=== PATIENT | female | born 1995 | race Caucasian/White ===

== ENCOUNTER 2017-01-05 15:33 | Inpatient (IN) | payer BC ==
[~2017-01-05] VITALS: Ht 154.9 cm; Wt 59.2 kg
[~2017-01-05 15:33] MED LIST: K-DUR20 MEQ PO; KLOR-CON20 MEQ PO; LEVAQUIN750 MG PO; MAG-OXIDE400 MG PO; NAPROSYN500 MG PO; POTASSIUM CHLO20 ME2 PO; POTASSIUM CHLO20 MEQ PO; PROMETHAZINE HC25 M1 PO; SPIRONOLACTONE25 MG PO; ZITHROMAX200 MG/5 M PO; ZOFRAN4 MG PO
[2017-01-05 16:39] LABS: MCH 32.8 PG (29.0-34.0); MCHC 35.8 G/DL (30.0-36.0); MCV 91.7 FL (83-99); PLATELET COUNT 286 K/uL (156-360); RBC DIS.WIDTH-CV 12.3 % (11.8-14.6); RBC DIS.WIDTH-SD 41.8 % (39-53); RED BLOOD COUNT 4.36 M/uL (3.80-5.20); WHITE BLOOD COUNT 20.9 K/uL (4.1-10.2)
[2017-01-05 16:50] LABS: CHLORIDE 92 mEq/L (99-109); SODIUM 137 mEq/L (136-147)
[2017-01-05 16:52] LABS: GLUCOSE 102 mg/dL (70-99)
[2017-01-05 16:53] LABS: ANION GAP 14 MEQ/L (2-14)
[2017-01-05 16:54] LABS: TOTAL BILIRUBIN 1.5 mg/dL (0.0-1.0)
[2017-01-05 16:55] LABS: ALKALINE PHOSPHATASE 71 IU/L (3-129); GFR ESTIMATE (CALCULATED) > 59 mL/min/
[2017-01-05 16:57] LABS: UREA NITROGEN (BUN) 8 mg/dL (9-23)
[2017-01-05 17:09] LABS: POTASSIUM 2.1 mEq/L (3.7-5.4)
[2017-01-05 18:34] LABS: MAGNESIUM 1.4 mg/dL (1.3-2.7)
[2017-01-05 18:41] LABS: LIPASE 22 U/L (1.0-51.0)
[2017-01-05 18:59] LABS: ADD MIUA? YES; BILIRUBIN SMALL; BLOOD SMALL; COLOR AMBER ((YELLOW)); GLUCOSE (STRIP) NEGATIVE; KETONES 20; LEUKOCYTES MODERATE; NITRITE NEGATIVE; PROTEIN (STRIP) >=500; SPECIFIC GRAVITY 1.017 (1.000-1.030)
[2017-01-05 19:39] LABS: BACTERIA 2+ /HPF; EPITHELIAL CELLS 2+ /HPF; MUCUS NONE SEEN /LPF; RED BLOOD CELLS 0-5 /HPF (0-5); UCUL ADDED? YES; WHITE BLOOD CELLS TNTC /HPF (0-5)
[2017-01-05] MEDS ORDERED: SPIRONOLACTONE25 MG PO ×3 (20:19→20:20)
[2017-01-05 21:09] LABS: QUANTITATIVE HCG < 4.0 MIU/ML
[2017-01-06 03:15] VITALS: BP 91/56
[2017-01-06 07:43] LABS: ANION GAP 8 MEQ/L (2-14); CHLORIDE 102 MEQ/L (99-109); GFR ESTIMATE (CALCULATED) > 59 mL/min/; GLUCOSE 100 mg/dL (70-99); SAMPLE HEMOLYSIS CHECK 0; SAMPLE ICTERIC CHECK 0; SAMPLE LIPEMIA CHECK 0; SODIUM 139 MEQ/L (136-147); UREA NITROGEN (BUN) 9 mg/dL (9-23)
[2017-01-06 07:44] LABS: POTASSIUM 3.1 MEQ/L (3.7-5.4)
[2017-01-06 08:06] VITALS: BP 100/45
[2017-01-06 11:18] VITALS: BP 92/52
[2017-01-06 14:19] LABS: HEMATOCRIT 35.5 % (36.0-46.0); MCH 32.1 PG (29.0-34.0); MCHC 34.1 G/DL (30.0-36.0); MCV 94.2 FL (83-99); MEAN PLAT.VOLUME 9.1 uM^3 (9.5-12.4); PLATELET COUNT 238 K/uL (156-360); RBC DIS.WIDTH-CV 12.8 % (11.8-14.6); RBC DIS.WIDTH-SD 44.3 % (39-53); RED BLOOD COUNT 3.77 M/uL (3.80-5.20); WHITE BLOOD COUNT 18.1 K/uL (4.1-10.2)
[2017-01-06 14:24] LABS: ANION GAP 7 MEQ/L (2-14); CHLORIDE 102 MEQ/L (99-109); GFR ESTIMATE (CALCULATED) > 59 mL/min/; GLUCOSE 98 mg/dL (70-99); POTASSIUM 3.6 MEQ/L (3.7-5.4); SAMPLE HEMOLYSIS CHECK 0; SAMPLE ICTERIC CHECK 0; SAMPLE LIPEMIA CHECK 0; SODIUM 138 MEQ/L (136-147); UREA NITROGEN (BUN) 8 mg/dL (9-23)
[2017-01-06 15:20] VITALS: BP 97/53
[2017-01-06 19:41] VITALS: BP 93/55
[2017-01-06 23:18] VITALS: BP 84/45
[2017-01-07 04:14] VITALS: BP 91/50
[2017-01-07 08:22] VITALS: BP 96/56
[2017-01-07 11:20] VITALS: BP 92/47
[2017-01-07 16:24] VITALS: BP 88/50
[2017-01-07 20:00] VITALS: BP 93/47
[2017-01-08] VITALS (8 sets, daily range): BP systolic 78–97; BP diastolic 39–54
[2017-01-08 07:10] LABS: HEMATOCRIT 37.6 % (36.0-46.0); MCH 31.6 PG (29.0-34.0); MCHC 33.2 G/DL (30.0-36.0); MCV 95.2 FL (83-99); MEAN PLAT.VOLUME 9.2 uM^3 (9.5-12.4); RBC DIS.WIDTH-CV 12.5 % (11.8-14.6); RED BLOOD COUNT 3.95 M/uL (3.80-5.20)
[2017-01-08 07:11] LABS: PLATELET COUNT 327 K/uL (156-360); WHITE BLOOD COUNT 11.4 K/uL (4.1-10.2)
[2017-01-08 07:18] LABS: ANION GAP 5 MEQ/L (2-14); CHLORIDE 102 MEQ/L (99-109); GFR ESTIMATE (CALCULATED) > 59 mL/min/; GLUCOSE 86 mg/dL (70-99); SAMPLE HEMOLYSIS CHECK 0; SAMPLE ICTERIC CHECK 0; SAMPLE LIPEMIA CHECK 0; SODIUM 135 MEQ/L (136-147); UREA NITROGEN (BUN) 6 mg/dL (9-23)
[2017-01-08 07:20] LABS: POTASSIUM 6.5 MEQ/L (3.7-5.4)
[2017-01-08 13:05] LABS: ANION GAP 10 MEQ/L (2-14); CHLORIDE 100 MEQ/L (99-109); GFR ESTIMATE (CALCULATED) > 59 mL/min/; GLUCOSE 96 mg/dL (70-99); POTASSIUM 5.7 MEQ/L (3.7-5.4); SAMPLE HEMOLYSIS CHECK 0; SAMPLE ICTERIC CHECK 0; SAMPLE LIPEMIA CHECK 0; SODIUM 136 MEQ/L (136-147); UREA NITROGEN (BUN) 7 mg/dL (9-23)
[2017-01-08 17:18] LABS: ANION GAP 8 MEQ/L (2-14); CHLORIDE 99 MEQ/L (99-109); GFR ESTIMATE (CALCULATED) > 59 mL/min/; GLUCOSE 115 mg/dL (70-99); POTASSIUM 4.6 MEQ/L (3.7-5.4); SAMPLE HEMOLYSIS CHECK 0; SAMPLE ICTERIC CHECK 0; SAMPLE LIPEMIA CHECK 0; SODIUM 135 MEQ/L (136-147); UREA NITROGEN (BUN) 9 mg/dL (9-23)
[2017-01-09 04:13] VITALS: BP 91/46
[2017-01-09 07:38] VITALS: BP 104/59
[2017-01-09 10:09] LABS: ANION GAP 11 MEQ/L (2-14); CHLORIDE 96 MEQ/L (99-109); GFR ESTIMATE (CALCULATED) > 59 mL/min/; GLUCOSE 89 mg/dL (70-99); POTASSIUM 3.9 MEQ/L (3.7-5.4); SAMPLE HEMOLYSIS CHECK 0; SAMPLE ICTERIC CHECK 0; SAMPLE LIPEMIA CHECK 0; SODIUM 138 MEQ/L (136-147); UREA NITROGEN (BUN) 14 mg/dL (9-23)
[2017-01-09 11:38] VITALS: BP 107/56
[2017-01-09 15:49] VITALS: BP 96/53
[2017-01-09 19:39] VITALS: BP 92/54
[2017-01-10 00:29] VITALS: BP 81/48
[2017-01-10 04:18] VITALS: BP 90/55
[2017-01-10 07:51] VITALS: BP 92/55
[2017-01-10 10:11] LABS: ANION GAP 13 MEQ/L (2-14); CHLORIDE 95 MEQ/L (99-109); GFR ESTIMATE (CALCULATED) > 59 mL/min/; GLUCOSE 130 mg/dL (70-99); POTASSIUM 3.9 MEQ/L (3.7-5.4); SAMPLE HEMOLYSIS CHECK 0; SAMPLE ICTERIC CHECK 0; SAMPLE LIPEMIA CHECK 0; SODIUM 137 MEQ/L (136-147); UREA NITROGEN (BUN) 13 mg/dL (9-23)
[2017-01-10 10:19] LABS: HEMATOCRIT 39.6 % (36.0-46.0); MCH 32.2 PG (29.0-34.0); MCHC 34.6 G/DL (30.0-36.0); MEAN PLAT.VOLUME 8.7 uM^3 (9.5-12.4); PLATELET COUNT 457 K/uL (156-360); RBC DIS.WIDTH-SD 41.3 % (39-53); RED BLOOD COUNT 4.26 M/uL (3.80-5.20); WHITE BLOOD COUNT 10.4 K/uL (4.1-10.2)
[2017-01-10] MEDS ORDERED: CIPRO500 MG PO (10:49)
[2017-01-10 11:24] VITALS: BP 99/55
== END 2017-01-10 14:03 | disposition home or self-care (01) | DRG 690 ==
LOC: RME 15:33 → EME 15:33 → EDOF 21:41 → 5SOUTH 21:41
PROVIDERS: Family Medicine; Internal Medicine; Nurse Practitioner Family; Physician Assistant Medical
DX: N10 Acute pyelonephritis (principal); E87.6 Hypokalemia; R17 Unspecified jaundice; N83.10 Corpus luteum cyst of ovary, unspecified side; E86.0 Dehydration; N25.89 Other disorders resulting from impaired renal tubular function; E83.42 Hypomagnesemia; R19.7 Diarrhea, unspecified; R51 Headache; R11.12 Projectile vomiting; R10.9 Unspecified abdominal pain; A49.8 Other bacterial infections of unspecified site; N15.1 Renal and perinephric abscess
CPT/HCPCS: 71275; 74177; 76770; 80048; 80048 91; 80053; 80069; 81003; 83605; 83690; 83735; 84702; 85027; 87040; 87077; 87086; 87186; 93005; 99281; 99285; J0696; J1644; J1885; J2405; J3010; J3480; J7030; J7050

== ENCOUNTER 2017-09-22 22:46 | Inpatient (IN) | payer BC ==
[~2017-09-22] VITALS: Ht 154.9 cm; Wt 64.9 kg
[~2017-09-22 22:46] MED LIST changes: +CIPRO500 MG PO
[2017-09-23 00:43] LABS: HEMATOCRIT 42.5 % (36.0-46.0); MCHC 36.7 G/DL (30.0-36.0); MCV 89.9 FL (83-99); MEAN PLAT.VOLUME 8.8 uM^3 (9.5-12.4); PLATELET COUNT 409 K/uL (156-360); RBC DIS.WIDTH-CV 11.7 % (11.8-14.6); RBC DIS.WIDTH-SD 38.3 % (39-53); RED BLOOD COUNT 4.73 M/uL (3.80-5.20); WHITE BLOOD COUNT 24.9 K/uL (4.1-10.2)
[2017-09-23 00:56] LABS: CHLORIDE 93 mEq/L (99-109); SODIUM 139 mEq/L (136-147)
[2017-09-23 00:58] LABS: GLUCOSE 107 mg/dL (70-99)
[2017-09-23 00:59] LABS: ANION GAP 15 MEQ/L (2-14)
[2017-09-23 01:00] LABS: TOTAL BILIRUBIN 0.8 mg/dL (0.0-1.0)
[2017-09-23 01:01] LABS: ALKALINE PHOSPHATASE 66 IU/L (3-129)
[2017-09-23 01:02] LABS: GFR ESTIMATE (CALCULATED) > 59 mL/min/
[2017-09-23 01:03] LABS: UREA NITROGEN (BUN) 14 mg/dL (9-23)
[2017-09-23 01:06] LABS: QUANTITATIVE HCG < 4.0 MIU/ML
[2017-09-23 01:13] LABS: POTASSIUM 2.2 mEq/L (3.7-5.4)
[2017-09-23 01:21] LABS: ADD MIUA? YES; BILIRUBIN NEGATIVE; BLOOD NEGATIVE; COLOR YELLOW ((YELLOW)); GLUCOSE (STRIP) NEGATIVE; KETONES NEGATIVE; LEUKOCYTES NEGATIVE; NITRITE NEGATIVE; PROTEIN (STRIP) 30; SPECIFIC GRAVITY 1.024 (1.000-1.030)
[2017-09-23 01:56] LABS: BACTERIA NONE SEEN /HPF; EPITHELIAL CELLS 4+ /HPF; MUCUS TRACE /LPF; RED BLOOD CELLS 0-5 /HPF (0-5); UCUL ADDED? NO; WHITE BLOOD CELLS 0-5 /HPF (0-5)
[2017-09-23 08:22] LABS: CHLORIDE 99 mEq/L (99-109); SODIUM 138 mEq/L (136-147)
[2017-09-23 08:23] LABS: POTASSIUM 2.3 mEq/L (3.7-5.4)
[2017-09-23 08:24] LABS: GLUCOSE 98 mg/dL (70-99); MAGNESIUM 1.4 mg/dL (1.3-2.7)
[2017-09-23 08:26] LABS: ANION GAP 7 MEQ/L (2-14)
[2017-09-23 08:28] LABS: GFR ESTIMATE (CALCULATED) > 59 mL/min/
[2017-09-23 08:29] LABS: UREA NITROGEN (BUN) 10 mg/dL (9-23)
[2017-09-23] MEDS ORDERED: TYLENOL REGULA325 MG PO (11:12)
[2017-09-23 11:17] LABS: CHLORIDE 98 mEq/L (99-109); SODIUM 137 mEq/L (136-147)
[2017-09-23 11:18] LABS: POTASSIUM 2.1 mEq/L (3.7-5.4)
[2017-09-23 11:19] LABS: GLUCOSE 99 mg/dL (70-99)
[2017-09-23 11:21] LABS: ANION GAP 8 MEQ/L (2-14)
[2017-09-23 11:23] LABS: GFR ESTIMATE (CALCULATED) > 59 mL/min/
[2017-09-23 11:24] LABS: UREA NITROGEN (BUN) 7 mg/dL (9-23)
[2017-09-23 13:03] LABS: TROP-I INTERPRETATION NEGATIVE; TROPONIN-I < 0.01 ng/mL (0.0-0.30)
[2017-09-23 15:57] VITALS: BP 105/56
[2017-09-23 18:39] LABS: TROP-I INTERPRETATION NEGATIVE; TROPONIN-I 0.08 ng/mL (0.0-0.30)
[2017-09-23 19:25] VITALS: BP 99/57
[2017-09-23 23:00] VITALS: BP 101/57
[2017-09-24 01:03] LABS: TROP-I INTERPRETATION NEGATIVE; TROPONIN-I 0.02 ng/mL (0.0-0.30)
[2017-09-24 03:30] VITALS: BP 103/59
[2017-09-24 06:09] LABS: ANION GAP 9 MEQ/L (2-14); CHLORIDE 96 MEQ/L (99-109); GFR ESTIMATE (CALCULATED) > 59 mL/min/; GLUCOSE 91 mg/dL (70-99); POTASSIUM 3.1 MEQ/L (3.7-5.4); SAMPLE HEMOLYSIS CHECK 0; SAMPLE ICTERIC CHECK 0; SAMPLE LIPEMIA CHECK 0; SODIUM 134 MEQ/L (136-147); UREA NITROGEN (BUN) 5 mg/dL (9-23)
[2017-09-24 07:10] VITALS: BP 102/53
[2017-09-24 16:12] LABS: ANION GAP 6 MEQ/L (2-14); CHLORIDE 101 MEQ/L (99-109); GFR ESTIMATE (CALCULATED) > 59 mL/min/; GLUCOSE 92 mg/dL (70-99); SAMPLE HEMOLYSIS CHECK 0; SAMPLE ICTERIC CHECK 0; SAMPLE LIPEMIA CHECK 0; SODIUM 136 MEQ/L (136-147); UREA NITROGEN (BUN) 5 mg/dL (9-23)
[2017-09-24 16:14] LABS: POTASSIUM 4.2 MEQ/L (3.7-5.4)
[2017-09-24] MEDS ORDERED: AMOXICILLIN500 MG PO (16:47)
[2017-09-24 16:54] VITALS: BP 96/54
[2017-09-24 16:57] LABS: BASOPHIL COUNT 0.1 K/uL (0-0.1); EOSINOPHIL COUNT 0.1 K/uL (0-0.3); HEMATOCRIT 37.7 % (36.0-46.0); IMMATURE GRANULOCYTE (%) 0.5 % (0.0-0.7); IMMATURE GRANULOCYTE COUNT 0.1 K/uL; INSTRUMENT ABS NEUTROPHIL CT 9.1 K/uL; LYMPHOCYTE COUNT 1.3 K/uL (1.0-2.8); MCH 32.1 PG (29.0-34.0); MCHC 34.7 G/DL (30.0-36.0); MCV 92.4 FL (83-99); MEAN PLAT.VOLUME 8.7 uM^3 (9.5-12.4); MONOCYTE (%) 8.3 % (3-12); NEUTROPHIL (%) 78.2 % (45-76); NEUTROPHIL COUNT 9.1 K/uL (1.8-6.4); PLATELET COUNT 310 K/uL (156-360); RBC DIS.WIDTH-CV 12.2 % (11.8-14.6); RBC DIS.WIDTH-SD 41.5 % (39-53); RED BLOOD COUNT 4.08 M/uL (3.80-5.20); WHITE BLOOD COUNT 11.7 K/uL (4.1-10.2)
== END 2017-09-24 17:55 | disposition home or self-care (01) | DRG 641 ==
LOC: EME 22:46 → EDOF 09-23 08:46 → 4EAST 09-23 08:46 → ENRESERV 09-23 08:48 → CANRESERV 09-23 08:48 → ENRESERV 09-23 12:30 → 4EAST 09-23 15:41
PROVIDERS: Emergency Medicine; Internal Medicine
PROC: 02HV33Z Insertion of Infusion Device into Superior Vena Cava, Percutaneous Approach (ICD-10-PCS; principal; 2017-09-23)
DX: E87.6 Hypokalemia (principal); E83.42 Hypomagnesemia; N25.89 Other disorders resulting from impaired renal tubular function; J02.0 Streptococcal pharyngitis; B95.0 Streptococcus, group A, as the cause of diseases classified elsewhere
CPT/HCPCS: 71010; 71020; 74176; 80048; 80048 91; 80053; 81003; 83605; 83735; 84132 91; 84484; 84702; 85025; 85027; 87040; 87086; 87502; 87651 90; 93005; 99281; 99285; C1751; J2405; J3475; J3480; J7040; J7050

== ENCOUNTER 2018-03-06 12:09 | Emergency (ER) | payer BC ==
[~2018-03-06] VITALS: Ht 154.9 cm; Wt 61.2 kg
[~2018-03-06 12:09] MED LIST changes: +AMOXICILLIN500 MG PO; +TYLENOL REGULA325 MG PO
[2018-03-06 12:43] LABS: BASOPHIL (%) 0.6 % (0-1); BASOPHIL COUNT 0.1 K/uL (0-0.1); EOSINOPHIL COUNT 0.1 K/uL (0-0.3); HEMATOCRIT 41.3 % (36.0-46.0); HEMOGLOBIN 15.3 G/DL (11.9-15.5); IMMATURE GRANULOCYTE (%) 0.3 % (0.0-0.7); LYMPHOCYTE (%) 15.8 % (15-42); LYMPHOCYTE COUNT 1.7 K/uL (1.0-2.8); MCH 33.5 PG (29.0-34.0); MCV 90.4 FL (83-99); MONOCYTE (%) 5.4 % (3-12); MONOCYTE COUNT 0.6 K/uL (0-0.8); NEUTROPHIL (%) 76.9 % (45-76); NEUTROPHIL COUNT 8.3 K/uL (1.8-6.4); PLATELET COUNT 397 K/uL (156-360); RBC DIS.WIDTH-SD 39.3 % (39-53); RED BLOOD COUNT 4.57 M/uL (3.80-5.20); WHITE BLOOD COUNT 10.8 K/uL (4.1-10.2)
[2018-03-06 12:54] LABS: CHLORIDE 95 mEq/L (99-109); SODIUM 140 mEq/L (136-147)
[2018-03-06 12:56] LABS: GLUCOSE 101 mg/dL (70-99)
[2018-03-06 12:59] LABS: CREATININE 0.7 mg/dL (0.6-1.3); GFR ESTIMATE (CALCULATED) > 59 mL/min/
[2018-03-06 13:00] LABS: UREA NITROGEN (BUN) 8 mg/dL (9-23)
[2018-03-06 13:05] LABS: POTASSIUM 2.2 mEq/L (3.7-5.4)
[2018-03-06 13:25] LABS: QUANTITATIVE HCG < 4.0 MIU/ML
[2018-03-06 15:40] LABS: CHLORIDE 99 mEq/L (99-109); SODIUM 139 mEq/L (136-147)
[2018-03-06 15:42] LABS: GLUCOSE 85 mg/dL (70-99)
[2018-03-06 15:45] LABS: CREATININE 0.6 mg/dL (0.6-1.3); GFR ESTIMATE (CALCULATED) > 59 mL/min/
[2018-03-06 15:46] LABS: UREA NITROGEN (BUN) 9 mg/dL (9-23)
[2018-03-06 16:00] LABS: POTASSIUM 2.8 mEq/L (3.7-5.4)
[2018-03-06 16:17] LABS: MAGNESIUM 1.3 mg/dL (1.3-2.7)
[2018-03-06 17:55] VITALS: BP 100/58
== END 2018-03-06 17:56 | disposition home or self-care (01) ==
LOC: EME 12:09
PROVIDERS: Nurse Practitioner Family; Physician Assistant Medical
DX: E87.6 Hypokalemia (principal); N25.89 Other disorders resulting from impaired renal tubular function; R51 Headache; R11.10 Vomiting, unspecified
CPT/HCPCS: 80048; 80048 91; 83735; 84702; 85025; 93005; 99281; 99285; J2405; J3480; J7030